=== PATIENT | male | born 1955 | race Caucasian/White ===

== ENCOUNTER 2016-04-11 14:10 | Emergency (ER) | payer OTHER ==
[~2016-04-11] VITALS: Ht 162.6 cm; Wt 72.6 kg
[~2016-04-11 14:10] MED LIST: DILAUDID2 MG PO; LOPERAMIDE2 M2 PO; MAGNESIUM OXID400 M1 PO; METHADONE HCL10 M1 PO; NICOTINE PATCH1 EAC3 TOP; OS-CAL 500+D31 EACH PO; TRAZODONE HCL100 M1 PO; VENLAFAXINE HC100 M1 PO
[2016-04-11] MEDS ORDERED: VENLAFAXINE HCL75 M1 PO (15:04)
--- NOTE | 2016-04-11 15:04 | ED GI/GU/ABDOMINAL COMPLAINT ---
See Addendum History of Present Illness General Chief Complaint: General Adult Stated Complaint: BIBA SEIZURE Source: patient, old records, EMS Exam Limitations: no limitations Vital Signs & Intake/Output Vital Signs & Intake/Output Vital Signs Date Time Temp Pulse Resp B/P Pulse O2 O2 Flow FiO2 Ox Delivery Rate 04/12 0133 76 18 137/64 97 Room Air / 2258 99.2 86 16 134/74 97 Room Air 04/11 1951 99.1 73 16 146/81 98 Room Air 04/11 1813 97.8 80 18 188/90 98 03/ 1419 96.8 88 20 178/91 97 Room Air ED Intake and Output 04/12 0000 04/11 1200 Intake Total 1000 Output Total Balance 1000 Intake, IV 1000 Patient 160 lb Weight Allergies Coded Allergies: Penicillins (UNKNOWN 04/03/15) bacitracin (From Neosporin ([id number])) (UNKNOWN 04/03/15) neomycin (From Neosporin ([id number])) (UNKNOWN 04/03/15) polymyxin B (From Neosporin ([id number])) (UNKNOWN 04/03/15) Reconcile Medications Methadone Hydrochloride (Methadone HCl) 10 MG TABLET 90 MG PO DAILY opiate dependance (Reported) Trazodone HCl 100 MG TABLET 2 TAB PO AT BEDTIME sleep (Reported) Venlafaxine HCl (Venlafaxine HCl ER) 75 MG CAP.ER.24H 1 CAP PO DAILY MENTAL HEALTH (Reported) Triage Note: SEE TRIAGE NOTE Triage Nurses Notes Reviewed? yes Onset: Morning Duration: hour(s):, continues in ED, getting worse Timing: recent history Quality/Severity: aching, severe Location: generalized abdomen Radiation: no radiation Activities at Onset: none Prior Abdominal Problems: similar symptoms Past Sexual History: Unobtainable at this time Modifying Factors: Worsens With: eating, movement, palpation. Associated Symptoms: abdominal pain, diarrhea, loss of appetite, nausea/vomiting HPI: Less than 1 day prior to admission patient complains of abdominal distention frequent loose watery stools weakness. 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 He continues to consume these items. (KELSI MONTERO,MADIE) Past History Travel History Traveled to [place] past 21 day No Medical History Any Pertinent Medical History? see below for history Neurological: NONE EENT: NONE Cardiovascular: NONE Respiratory: NONE Gastrointestinal: irritable bowel syndrome Hepatic: NONE Renal: NONE Musculoskeletal: NONE Psychiatric: depression, opioid dependence, ON METHADONE Endocrine: NONE Blood Disorders: NONE Cancer(s): NONE SURGICAL SCHEDULER/Reproductive: NONE History of MRSA: No History of VRE: No History of CDIFF: No Surgical History Surgical History: L radius orif L ORBITAL FX Psychosocial History Who do you live with Patient/Self Services at Home None What is your primary language [place] Tobacco Use: Current Daily Use Daily Tobacco Use Amount/Type: => 5 Cigarettes daily ETOH Use: denies use Illicit Drug Use: FORMER DRUG USER Family History Hx Contributory? No (MADIE DOLAN MD) Review of Systems Review of Systems Constitutional: Reports: see HPI, malaise, weakness. EENTM: Reports: no symptoms. Respiratory: Reports: no symptoms. Cardiovascular: Reports: no symptoms. GI: Reports: see HPI, abdominal pain, diarrhea, nausea. Genitourinary: Reports: no symptoms. Musculoskeletal: Reports: no symptoms. Skin: Reports: no symptoms. Neurological/Psychological: Reports: see HPI, anxiety, cognitive dysfunction. Hematologic/Endocrine: Reports: no symptoms. Immunologic/Allergic: Reports: no symptoms. All Other Systems: Reviewed and Negative (MADIE DOLAN MD) Physical Exam Physical Exam General Appearance: well developed/nourished, alert, awake, anxious, moderate distress Head: atraumatic, normal appearance Eyes: Bilateral: normal appearance, PERRL, EOMI, normal inspection. Ears, Nose, Throat, Mouth: hearing grossly normal Neck: normal inspection, supple, full range of motion, normal alignment Respiratory: normal breath sounds, chest non-tender, no respiratory distress, quiet respiration, lungs clear Cardiovascular: regular rate/rhythm, normal peripheral pulses, norml femoral pulses equa Peripheral Pulses: 4+ carotid (R), 4+ carotid (L) Gastrointestinal: normal bowel sounds, non-tender, no organomegaly, distention Male Genitals: normal genitalia Back: normal inspection, normal range of motion Extremities: normal range of motion, no ligament instability Neurologic/Psych: no motor/sensory deficits, awake, alert, oriented x 3, 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 No Severe Sepsis Present: No Septic Shock Present: No (KELSI MONTERO,MADIE) Progress Differential Diagnosis: bowel obstruction, inflamm bowel dis, pancreatitis, PUD/ GERD Plan of Care: Orders Procedure Date/time Status Add-on Test (ER Only) 04/11 1658 Active ETHANOL 04/11 1534 Complete STOOL: R/O YERSINIA 04/11 145 Active STOOL:R/O VIBRIO 04/11 145 Active CULTURE,STOOL 04/11 145 Active C.DIFFICILE 04/11 145 Active MAGNESIUM 04/11 145 Complete LIPASE 04/11 145 Complete COMPREHENSIVE METABOLIC PANEL 04/11 145 Complete CBC WITHOUT DIFFERENTIAL 04/11 145 Complete Current Medications Sig/Chasity Start time Last Medication Dose Stop Time Status Admin Trazodone HCl 100 MG ONCE ONE 04/11 2215 CAN (Desyrel) 04/11 221 Sodium Chloride 1,000 ML 04/11 1500 CAN (Normal Saline 0.9%) Laboratory Tests 04/11/16 1534: Anion Gap 12, Estimated GFR > 60, BUN/Creatinine Ratio 15.6, Glucose 141 H, Calcium 9.1, Magnesium 1.9, Total Bilirubin 0.6, AST 28, ALT 31, Alkaline Phosphatase 63, Total Protein 6.7, Albumin 4.0, Globulin 2.7, Albumin/Globulin Ratio 1.5, Lipase 503 H, Serum Alcohol < 10.0 04/11/16 1500: CBC w Diff NO MAN DIFF REQ, RBC 5.34, MCV 87.5, MCH 29.1, RDW 13.4, MPV 9.1, Gran % 70.3, Lymphocytes % 22.3, Monocytes % 5.5, Eosinophils % 0.5, Basophils % 1.4, Absolute Granulocytes 6.9 H, Absolute Lymphocytes 2.2, Absolute Monocytes 0.5, Absolute Eosinophils 0, Absolute Basophils 0.1, PUBS MCHC 33.2 Microbiology 04/11 145 STOOL: Clostridium difficile Toxin A & B - RECD 04/11 145 STOOL: Vibrio Culture - RECD 04/11 1449 STOOL: Yersinia Culture - RECD 04/11 1449 STOOL: Stool Culture - RECD Initial ED EKG: none Hand-Off Endorsed To: CHRIS MONTERO,BEV Clement Endorsed Time: 1899 Pending: other (clinical improvement) Comments: The patient had 2 episodes of stooling on the floor not trying to get out of bed to toilet or commode. Reprimanded by staff members for lack of consideration for hygiene or others. (KELSI MONTERO,MADIE) Comments: 04/11/161929: PT STATES THAT THERE IS NO WAY HE CAN GO HOME AT THIS TIME. HE IS STILL GETTING THE INTENSE ABD SPASMS THAT MAKE HIM CURL INTO A BALL. PT STATES THAT HE HAS BEEN AVOIDING SORBITOL. CALL HAS BEEN PLACED TO GI. Patient was discussed with Dr. Ingram. He states that he has been unable to find the etiology of his intermittent diarrhea however there is a possibility of psychological in origin. PT SIGNED OUT TO DR. DOLAN AT 0700. (CHRIS MONTERO,BEV Clement) Departure Departure Condition: Stable Clinical Impression Primary Impression: Acute diarrhea Referrals: PREM DASILVA APRN (PCP/Family) Departure Forms: Customer Survey General Discharge Information (MADIE DOLAN MD) Departure Disposition: HOME OR SELF CARE Additional Instructions: FOLLOW UP WITH DR. INGRAM RETURN NEEDED (CHRIS MONTERO,BEV Clement)
[2016-04-11 15:20] LABS: ABSOLUTE BASOPHIL COUNT 0.1 /CUMM (0.0-0.2); ABSOLUTE EOSINOPHIL COUNT 0 /CUMM (0.0-0.7); ABSOLUTE GRANULOCYTE CT 6.9 /CUMM (1.4-6.5); ABSOLUTE LYMPH COUNT 2.2 /CUMM (1.2-3.4); ABSOLUTE MONOCYTE COUNT 0.5 /CUMM (0.10-0.60); BASOPHIL % 1.4 % (0.0-2.0); EOSINOPHIL % 0.5 % (0-5); GRANULOCYTE % 70.3 % (42.2-75.2); HEMATOCRIT 46.7 % (42-52); MEAN CORPUSCULAR HGB 29.1 PG (27.0-31.0); MEAN CORPUSCULAR HGB CONC 33.2 G/DL (33.0-37.0); MEAN CORPUSCULAR VOLUME 87.5 FL (80.0-94.0); MEAN PLATELET VOLUME 9.1 FL (7.4-10.4); PLATELET COUNT 282 /CUMM (130-400); RBC DISTRIBUTION WIDTH 13.4 % (11.5-14.5); RED BLOOD CELL CT 5.34 /CUMM (4.70-6.10); WHITE BLOOD CELL COUNT 9.8 /CUMM (4.8-10.8)
[2016-04-12 12:25] VITALS: BP 141/84
[2016-04-12] MEDS ORDERED: LEVSIN-SL0.125 MG SL (12:50)
[2016-04-12] MEDS ORDERED: ZOFRAN ODT4 M1 SL (12:50)
[2016-04-12] MEDS ORDERED: LOMOTIL 2.5-0.1 EACH PO (12:50)
== END 2016-04-12 13:25 ==
LOC: ERH 14:10
PROVIDERS: Emergency Medicine
DX: R19.7 Diarrhea, unspecified (principal)
CPT/HCPCS: 87045; 96361; 96374; 96375; G0480; J2405; J2765; J3360